=== PATIENT | male | born 1960 | race Caucasian/White ===

== ENCOUNTER 2019-05-09 18:10 | Inpatient (IN) ==
--- NOTE | 2019-05-09 18:41 | Emergency Department Note ---
Disposition Clinical Impression: Acute hyponatremia, Dehydration, Hypokalemia Disposition: Admitted As Inpatient Condition: Good Referrals: NONE,PCP [Primary Care Provider] - Forms: ED Satisfaction Letter Time of Disposition: 22:06 General Adult HPI - General Chief complaint: ED Extremity Problem,Nontraumatic Stated complaint: right hip pain Time Seen by Provider: 05/09/19 18:30 Source: patient, EMS Mode of arrival: EMS Limitations: no limitations Nursing Notes Reviewed: Yes Vital Signs Reviewed: Yes - History of Present Illness HPI Narrative: Patient presents to the emergency department very hard to understand because he is mumbling and not really staying on subject. He complains of pain to his right hip. I saw this a few days ago. He says is worse. He says he fell again at home after I had seen him. Complains of weakness. He does not know with Toradol his hip. Also turns out is not taking any of his medications. He is not doing any of his follow-up appointments. No one at home takes care of him. He lives with a friend of the son but does not get any care. Pt Subjective Complaint: Weakness and hip pain Pain Scale: 10 - Related Data Previous Rx's Medication Instructions Recorded Allopurinol [Zyloprim 100 MG] 100 mg PO DAILY #30 tablet 01/04/17 Aspirin 81 mg PO DAILY #30 tab.chew 01/04/17 Atorvastatin [Lipitor] 40 mg PO HS #30 tablet 01/04/17 Lisinopril [Zestril] 10 mg PO DAILY #30 tablet 01/04/17 Metoprolol XL (24 HR) Succ [Toprol 25 mg PO DAILY #30 tab.er.24h 01/04/17 Xl] metFORMIN [Glucophage] 500 mg PO BIDWM #60 tablet 01/04/17 Ketorolac [Toradol] 10 mg PO Q6HR #14 tablet 05/04/19 Allergies Allergy/AdvReac Type Severity Reaction Status Date / Time fluoxetine [From Prozac] AdvReac Nausea Verified 05/09/19 18:20 hydrocodone [From Vicodin] AdvReac Nausea Verified 05/09/19 18:20 All systems ED: reviewed and negative except as stated. Constitutional: Denies: fever ENT ED: Denies: ear pain, throat pain Cardiovascular: Denies: chest pain Respiratory: Denies: cough Gastrointestinal: Denies: abdominal pain Musculoskeletal: Reports: neck pain, arthralgia (Right hip). Denies: back pain Neurological: Reports: headache, weakness (Generalized weakness) Past Medical History - Past Medical History Attestation: Yes The following information was validated with the patient. Source: patient, old records reviewed, nursing notes reviewed Medical history: Reports: arthritis, coronary artery disease, diabetes, GERD, hyperlipidemia, hypertension, other Surgical history: Reports: angioplasty/stent (mid LAD CHELI x1 on 09/30/16), orthopedic, other (Right hip replacement, left humerus ORIF.) Psychiatric history: Reports: anxiety, depression, panic disorder - Social History Smoking Status: Current some day smoker Smokeless Tobacco Status: No Alcohol use: Reports: rarely Drug use: Reports: none Physical Exam - General Limitations: no limitations General appearance: alert, in no apparent distress, other (Slow to answer questions and speaks with mumbled speech so indistinct that you cannot tell if he is given you a correct answer or not) - Head Head exam: atraumatic, normocephalic, normal inspection - Eye Eye exam: Present: normal appearance, PERRL, EOMI. Absent: scleral icterus, conjunctival injection - ENT ENT exam: normal exam, normal oropharynx, mucous membranes moist, normal external ear exam - Neck Neck exam: Present: normal inspection, full ROM, trachea midline - Chest Chest inspection: Present: normal inspection, symmetric chest wall rise. Absent: tenderness - Respiratory Respiratory exam: Present: normal lung sounds bilaterally. Absent: respiratory distress, wheezes - Cardiovascular Cardiovascular exam: Present: regular rate, normal rhythm, normal heart sounds - Abdominal Exam Abdominal exam: Present: soft, Non-Tender, normal bowel sounds - Extremities Exam Extremities exam: Present: normal inspection, other (Pain with range of motion of hips) - Neurological Exam Neurological exam: Present: alert. Absent: motor sensory deficit - Skin Skin exam: Present: warm, dry. Absent: rash Course Course Narrative: Patient comes in with complaint of hip pain. This is a frequent complaint. Talking with the patient has fallen every other day at his home. Not taking his medicines. Poor hygiene. Clearly not taking care of or being cared for at home. It seems to me home was an unsafe environment. He needs a workup to find out why he is weak and unable to function and why he keeps falling. His speech is mumbling and unintelligible I cannot tell if he is coherent or not although he does follow my commands appropriately. I am going to do a workup. - Reevaluation(s) Reevaluation #1: Imaging studies were fine. Laboratory data is abnormal though. He has significantly low sodium level. BUN is very elevated compared to baseline. Clinically he looks dry. He is also hypokalemic. He needs to be admitted to the hospital. I given 1 L as a bolus and the second liter at 500 an hour. I have already spoken with the hospitalist, Dr. Sharma, who accepted the patient for admission. We had to hold the patient in the ER until they get another tech over there can watch the monitors Time: 22:07 - Consultations Consultation #1: Dr. Sharma, hospitalist - I discussed the case with the hospitalist. He accepted the patient for admission. Time: 21:00 Vital Signs Temperature 97.8 F 05/09/19 18:11 Pulse Rate 79 05/09/19 18:11 Respiratory Rate 15 05/09/19 18:11 Blood Pressure 136/65 05/09/19 18:11 O2 Sat by Pulse Oximetry 92 05/09/19 18:11 Temperature 97.8 F 05/09/19 18:11 Pulse Rate 103 05/09/19 22:06 Respiratory Rate 25 05/09/19 22:06 Blood Pressure 114/53 05/09/19 22:06 O2 Sat by Pulse Oximetry 95 05/09/19 22:06 Oxygen Delivery Oxygen Delivery Room Air Medical Decision Making - Medical Records Medical records reviewed: Yes I reviewed the patient's medical records. - Lab Data Lab results reviewed: Yes I reviewed the patient's lab results. Result diagrams: 05/09/19 18:57 05/09/19 18:57 Lab Results 05/09/19 05/09/19 05/09/19 Range/Units 18:57 18:57 18:57 WBC 14.0 H (4.3-11.1) K/mcL RBC 3.69 L (4.19-5.50) M/mcL Hgb 11.3 L (12.9-16.9) g/dL Hct 31.2 L (37.5-50.1) % MCV 84.6 (83.0-100.0) fL MCH 30.6 (28.0-33.3) pg MCHC 36.2 H (31.6-35.5) g/dL RDW 15.1 H (11.5-14.5) % Plt Count 109 L (140-400) K/mcL MPV 13.5 H (9.4-12.4) fL Immature Gran % 1.2 (0-4) % Seg Neutrophils % 89.4 % Lymphocytes % 5.3 % Monocytes % 1.6 % Eosinophils % 2.2 % Basophils % 0.3 % Neutrophils # 12.5 H (1.6-8.9) K/mcL Lymphocytes # 0.7 (0.6-4.6) K/mcL Monocytes # 0.2 (0.0-1.3) K/mcL Eosinophils # 0.3 (0.0-0.6) K/mcL Basophils # 0.0 (0.0-0.2) K/mcL Platelet Estimate Normal (Normal) PT (9.4-12.1) Seconds INR APTT 33.0 (26.0-36.0) Seconds Sample Site ABG pH (7.32-7.45) pH Units ABG pCO2 (35-45) mmHg ABG pO2 (85-104) mmHg ABG HCO3 (21-27) mEq/L ABG Total CO2 (20-26) mEq/L ABG O2 Saturation (95-98) % ABG Base Excess (-2 to 3) mEq/L Fausto Test O2 Delivery Device Sodium 115 L* (136-145) mEq/L Potassium 2.6 L (3.5-5.1) mEq/L Chloride 83 L (98-107) mEq/L Carbon Dioxide 23 (23-29) mEq/L BUN 73 H (6-20) mg/dL Creatinine 1.21 (0.70-1.30) mg/dL Est GFR ( Amer) > 60 (> 60) Est GFR (Non-Af Amer) > 60 (> 60) BUN/Creatinine Ratio 60 H (6-26) Glucose 133 H (70-105) mg/dL Calculated Osmolality 263 L (280-300) Lactic Acid (0.5-2.2) mmol/L Calcium 7.8 L (8.6-10.3) mg/dL Total Bilirubin (0.3-1.0) mg/dL Direct Bilirubin (0.0-0.2) mg/dL Indirect Bilirubin (0.0-1.2) mg/dL AST (13-39) Units/L ALT (7-52) Units/L Alkaline Phosphatase (34-104) Units/L Ammonia (16-53) mcmol/L Troponin I (< 0.04) ng/mL B-Natriuretic Peptide (Less than 100) pg/mL Serum Total Protein (6.4-8.9) g/dL Albumin (3.5-5.7) g/dL Globulin (2.4-3.5) g/dL Albumin/Globulin Ratio (1.1-2.2) Urine Color (Yellow) Urine Clarity (Clear) Urine pH (5.0-8.0) pH Units Ur Specific Foley (1.010-1.025) Urine Protein (Neg-Trace) mg/dL Urine Glucose (UA) (Normal) mg/dL Urine Ketones (Negative) mg/dL Urine Blood (Negative) Urine Nitrite (Negative) Urine Bilirubin (Negative) Urine Urobilinogen (Normal) mg/dL Ur Leukocyte Esterase (Negative) Urine Microscopic RBC (0-3) per hpf Urine Microscopic WBC (0-3) per hpf Ur Squamous Epith Cells (None-Few) per lpf Ur Transition Epith Cell (None-Few) per hpf Urine Bacteria (None-Few) per hpf Ur Culture Indicated? (NO) Urine Opiates Screen (Wjvacc=649) ng/mL Ur Buprenorphine Scrn (Cutoff=5) ng/mL Ur Oxycodone Screen (Cutoff= 100) ng/mL Ur Barbiturates Screen (Wnwmzp=719) ng/mL Ur Phencyclidine Scrn (Cutoff=25) ng/mL Ur Amphetamines Screen (Dkwopr=2923) ng/mL U Benzodiazepines Scrn (Lrsudl=701) ng/mL Urine Cocaine Screen (Cutoff= 300) ng/mL U Marijuana (THC) Screen (Cutoff = 50) ng/mL Ur Drug Screen Interp Ethyl Alcohol (Less than 10) mg/dL Person Notif of Crit 05/09/19 05/09/19 05/09/19 Range/Units 18:57 18:57 18:57 WBC (4.3-11.1) K/mcL RBC (4.19-5.50) M/mcL Hgb (12.9-16.9) g/dL Hct (37.5-50.1) % MCV (83.0-100.0) fL MCH (28.0-33.3) pg MCHC (31.6-35.5) g/dL RDW (11.5-14.5) % Plt Count (140-400) K/mcL MPV (9.4-12.4) fL Immature Gran % (0-4) % Seg Neutrophils % % Lymphocytes % % Monocytes % % Eosinophils % % Basophils % % Neutrophils # (1.6-8.9) K/mcL Lymphocytes # (0.6-4.6) K/mcL Monocytes # (0.0-1.3) K/mcL Eosinophils # (0.0-0.6) K/mcL Basophils # (0.0-0.2) K/mcL Platelet Estimate (Normal) PT 19.5 H (9.4-12.1) Seconds INR 1.7 APTT (26.0-36.0) Seconds Sample Site ABG pH (7.32-7.45) pH Units ABG pCO2 (35-45) mmHg ABG pO2 (85-104) mmHg ABG HCO3 (21-27) mEq/L ABG Total CO2 (20-26) mEq/L ABG O2 Saturation (95-98) % ABG Base Excess (-2 to 3) mEq/L Fausto Test O2 Delivery Device Sodium (136-145) mEq/L Potassium (3.5-5.1) mEq/L Chloride (98-107) mEq/L Carbon Dioxide (23-29) mEq/L BUN (6-20) mg/dL Creatinine (0.70-1.30) mg/dL Est GFR ( Amer) (> 60) Est GFR (Non-Af Amer) (> 60) BUN/Creatinine Ratio (6-26) Glucose (70-105) mg/dL Calculated Osmolality (280-300) Lactic Acid (0.5-2.2) mmol/L Calcium (8.6-10.3) mg/dL Total Bilirubin 3.9 H (0.3-1.0) mg/dL Direct Bilirubin 2.9 H (0.0-0.2) mg/dL Indirect Bilirubin 1.0 (0.0-1.2) mg/dL AST 93 H (13-39) Units/L ALT 57 H (7-52) Units/L Alkaline Phosphatase 153 H (34-104) Units/L Ammonia (16-53) mcmol/L Troponin I < 0.03 (< 0.04) ng/mL B-Natriuretic Peptide 78 (Less than 100) pg/mL Serum Total Protein 7.3 (6.4-8.9) g/dL Albumin 2.3 L (3.5-5.7) g/dL Globulin 5.0 H (2.4-3.5) g/dL Albumin/Globulin Ratio 0.5 L (1.1-2.2) Urine Color (Yellow) Urine Clarity (Clear) Urine pH (5.0-8.0) pH Units Ur Specific Foley (1.010-1.025) Urine Protein (Neg-Trace) mg/dL Urine Glucose (UA) (Normal) mg/dL Urine Ketones (Negative) mg/dL Urine Blood (Negative) Urine Nitrite (Negative) Urine Bilirubin (Negative) Urine Urobilinogen (Normal) mg/dL Ur Leukocyte Esterase (Negative) Urine Microscopic RBC (0-3) per hpf Urine Microscopic WBC (0-3) per hpf Ur Squamous Epith Cells (None-Few) per lpf Ur Transition Epith Cell (None-Few) per hpf Urine Bacteria (None-Few) per hpf Ur Culture Indicated? (NO) Urine Opiates Screen (Wftmfc=942) ng/mL Ur Buprenorphine Scrn (Cutoff=5) ng/mL Ur Oxycodone Screen (Cutoff= 100) ng/mL Ur Barbiturates Screen (Capobl=117) ng/mL Ur Phencyclidine Scrn (Cutoff=25) ng/mL Ur Amphetamines Screen (Apxfzz=2018) ng/mL U Benzodiazepines Scrn (Nnmdjg=097) ng/mL Urine Cocaine Screen (Cutoff= 300) ng/mL U Marijuana (THC) Screen (Cutoff = 50) ng/mL Ur Drug Screen Interp Ethyl Alcohol < 10 (Less than 10) mg/dL Person Notif of Crit 05/09/19 05/09/19 05/09/19 Range/Units 18:57 18:57 19:24 WBC (4.3-11.1) K/mcL RBC (4.19-5.50) M/mcL Hgb (12.9-16.9) g/dL Hct (37.5-50.1) % MCV (83.0-100.0) fL MCH (28.0-33.3) pg MCHC (31.6-35.5) g/dL RDW (11.5-14.5) % Plt Count (140-400) K/mcL MPV (9.4-12.4) fL Immature Gran % (0-4) % Seg Neutrophils % % Lymphocytes % % Monocytes % % Eosinophils % % Basophils % % Neutrophils # (1.6-8.9) K/mcL Lymphocytes # (0.6-4.6) K/mcL Monocytes # (0.0-1.3) K/mcL Eosinophils # (0.0-0.6) K/mcL Basophils # (0.0-0.2) K/mcL Platelet Estimate (Normal) PT (9.4-12.1) Seconds INR APTT (26.0-36.0) Seconds Sample Site R Radial ABG pH 7.47 H (7.32-7.45) pH Units ABG pCO2 25 L (35-45) mmHg ABG pO2 40 L* (85-104) mmHg ABG HCO3 18 L (21-27) mEq/L ABG Total CO2 19 L (20-26) mEq/L ABG O2 Saturation 80 L (95-98) % ABG Base Excess -4 L (-2 to 3) mEq/L Fausto Test Positive O2 Delivery Device Room Air Sodium (136-145) mEq/L Potassium (3.5-5.1) mEq/L Chloride (98-107) mEq/L Carbon Dioxide (23-29) mEq/L BUN (6-20) mg/dL Creatinine (0.70-1.30) mg/dL Est GFR ( Amer) (> 60) Est GFR (Non-Af Amer) (> 60) BUN/Creatinine Ratio (6-26) Glucose (70-105) mg/dL Calculated Osmolality (280-300) Lactic Acid 2.8 H (0.5-2.2) mmol/L Calcium (8.6-10.3) mg/dL Total Bilirubin (0.3-1.0) mg/dL Direct Bilirubin (0.0-0.2) mg/dL Indirect Bilirubin (0.0-1.2) mg/dL AST (13-39) Units/L ALT (7-52) Units/L Alkaline Phosphatase (34-104) Units/L Ammonia 41 (16-53) mcmol/L Troponin I (< 0.04) ng/mL B-Natriuretic Peptide (Less than 100) pg/mL Serum Total Protein (6.4-8.9) g/dL Albumin (3.5-5.7) g/dL Globulin (2.4-3.5) g/dL Albumin/Globulin Ratio (1.1-2.2) Urine Color (Yellow) Urine Clarity (Clear) Urine pH (5.0-8.0) pH Units Ur Specific Foley (1.010-1.025) Urine Protein (Neg-Trace) mg/dL Urine Glucose (UA) (Normal) mg/dL Urine Ketones (Negative) mg/dL Urine Blood (Negative) Urine Nitrite (Negative) Urine Bilirubin (Negative) Urine Urobilinogen (Normal) mg/dL Ur Leukocyte Esterase (Negative) Urine Microscopic RBC (0-3) per hpf Urine Microscopic WBC (0-3) per hpf Ur Squamous Epith Cells (None-Few) per lpf Ur Transition Epith Cell (None-Few) per hpf Urine Bacteria (None-Few) per hpf Ur Culture Indicated? (NO) Urine Opiates Screen (Qkjtbg=790) ng/mL Ur Buprenorphine Scrn (Cutoff=5) ng/mL Ur Oxycodone Screen (Cutoff= 100) ng/mL Ur Barbiturates Screen (Rzwsld=860) ng/mL Ur Phencyclidine Scrn (Cutoff=25) ng/mL Ur Amphetamines Screen (Qfgbwm=6798) ng/mL U Benzodiazepines Scrn (Dthdsi=775) ng/mL Urine Cocaine Screen (Cutoff= 300) ng/mL U Marijuana (THC) Screen (Cutoff = 50) ng/mL Ur Drug Screen Interp Ethyl Alcohol (Less than 10) mg/dL Person Notif of Ko carmen rn 05/09/19 05/09/19 Range/Units 19:30 19:30 WBC (4.3-11.1) K/mcL RBC (4.19-5.50) M/mcL Hgb (12.9-16.9) g/dL Hct (37.5-50.1) % MCV (83.0-100.0) fL MCH (28.0-33.3) pg MCHC (31.6-35.5) g/dL RDW (11.5-14.5) % Plt Count (140-400) K/mcL MPV (9.4-12.4) fL Immature Gran % (0-4) % Seg Neutrophils % % Lymphocytes % % Monocytes % % Eosinophils % % Basophils % % Neutrophils # (1.6-8.9) K/mcL Lymphocytes # (0.6-4.6) K/mcL Monocytes # (0.0-1.3) K/mcL Eosinophils # (0.0-0.6) K/mcL Basophils # (0.0-0.2) K/mcL Platelet Estimate (Normal) PT (9.4-12.1) Seconds INR APTT (26.0-36.0) Seconds Sample Site ABG pH (7.32-7.45) pH Units ABG pCO2 (35-45) mmHg ABG pO2 (85-104) mmHg ABG HCO3 (21-27) mEq/L ABG Total CO2 (20-26) mEq/L ABG O2 Saturation (95-98) % ABG Base Excess (-2 to 3) mEq/L Fausto Test O2 Delivery Device Sodium (136-145) mEq/L Potassium (3.5-5.1) mEq/L Chloride (98-107) mEq/L Carbon Dioxide (23-29) mEq/L BUN (6-20) mg/dL Creatinine (0.70-1.30) mg/dL Est GFR ( Amer) (> 60) Est GFR (Non-Af Amer) (> 60) BUN/Creatinine Ratio (6-26) Glucose (70-105) mg/dL Calculated Osmolality (280-300) Lactic Acid (0.5-2.2) mmol/L Calcium (8.6-10.3) mg/dL Total Bilirubin (0.3-1.0) mg/dL Direct Bilirubin (0.0-0.2) mg/dL Indirect Bilirubin (0.0-1.2) mg/dL AST (13-39) Units/L ALT (7-52) Units/L Alkaline Phosphatase (34-104) Units/L Ammonia (16-53) mcmol/L Troponin I (< 0.04) ng/mL B-Natriuretic Peptide (Less than 100) pg/mL Serum Total Protein (6.4-8.9) g/dL Albumin (3.5-5.7) g/dL Globulin (2.4-3.5) g/dL Albumin/Globulin Ratio (1.1-2.2) Urine Color Yellow (Yellow) Urine Clarity Clear (Clear) Urine pH 6.0 (5.0-8.0) pH Units Ur Specific Foley 1.010 (1.010-1.025) Urine Protein 30 H (Neg-Trace) mg/dL Urine Glucose (UA) Normal (Normal) mg/dL Urine Ketones Negative (Negative) mg/dL Urine Blood Small H (Negative) Urine Nitrite Negative (Negative) Urine Bilirubin Small H (Negative) Urine Urobilinogen 2.0 H (Normal) mg/dL Ur Leukocyte Esterase Small H (Negative) Urine Microscopic RBC 5-15 H (0-3) per hpf Urine Microscopic WBC 50-100 H (0-3) per hpf Ur Squamous Epith Cells Few (None-Few) per lpf Ur Transition Epith Cell Few (None-Few) per hpf Urine Bacteria Moderate H (None-Few) per hpf Ur Culture Indicated? YES A (NO) Urine Opiates Screen Positive H (Fkwwuz=372) ng/mL Ur Buprenorphine Scrn Negative (Cutoff=5) ng/mL Ur Oxycodone Screen Negative (Cutoff= 100) ng/mL Ur Barbiturates Screen Negative (Ozggci=983) ng/mL Ur Phencyclidine Scrn Negative (Cutoff=25) ng/mL Ur Amphetamines Screen Negative (Sqnjlv=4013) ng/mL U Benzodiazepines Scrn Negative (Vtcxvb=089) ng/mL Urine Cocaine Screen Negative (Cutoff= 300) ng/mL U Marijuana (THC) Screen Negative (Cutoff = 50) ng/mL Ur Drug Screen Interp See Below Ethyl Alcohol (Less than 10) mg/dL Person Notif of Crit - Radiology Data Radiology results reviewed: Yes I reviewed the patient's radiology results. - EKG Data EKG #1 EKG attestation: Yes I reviewed and interpreted this EKG. EKG results narrative: Twelve-lead EKG performed at 6:52 PM. Ordered, reviewed and interpreted by ED physician showed sinus rhythm at a rate of 86. Normal axis. Good hour progression across precordium. No acute ischemic changes. He does have a nonspecific intraventricular conduction delay. Otherwise intervals are within normal limits.
[2019-05-09 19:08] LABS: Basophils % 0.3 %; Eosinophils # 0.3 K/mcL (0.0-0.6); Eosinophils % 2.2 %; Hematocrit 31.2 % (37.5-50.1); Hemoglobin 11.3 g/dL (12.9-16.9); Immature Granulocytes % 1.2 % (0-4); Lymphocytes # 0.7 K/mcL (0.6-4.6); Lymphocytes % 5.3 %; Mean Corpuscular HGB Conc 36.2 g/dL (31.6-35.5); Mean Corpuscular Hemoglobin 30.6 pg (28.0-33.3); Mean Corpuscular Volume 84.6 fL (83.0-100.0); Mean Platelet Volume 13.5 fL (9.4-12.4); Monocytes # 0.2 K/mcL (0.0-1.3); Monocytes % 1.6 %; Neutrophils # 12.5 K/mcL (1.6-8.9); Platelet Count 109 K/mcL (140-400); Red Blood Count 3.69 M/mcL (4.19-5.50); Red Cell Distribution Width 15.1 % (11.5-14.5); Segmented Neutrophils % 89.4 %
[2019-05-09] MEDS: 0.9 % Sodium Chloride 1,000 ML IVC ONE ×2 (19:19→20:59)
[2019-05-09 19:26] LABS: INR 1.7; Prothrombin Time 19.5 Seconds (9.4-12.1)
[2019-05-09 19:27] LABS: Alanine Aminotransferase 57 Units/L (7-52); Albumin 2.3 g/dL (3.5-5.7); Albumin/Globulin Ratio 0.5 (1.1-2.2); Alkaline Phosphatase 153 Units/L (34-104); Aspartate Amino Transferase 93 Units/L (13-39); Bilirubin,Direct 2.9 mg/dL (0.0-0.2); Bilirubin,Total 3.9 mg/dL (0.3-1.0); Ethanol < 10 mg/dL (Less than 10); Total Protein 7.3 g/dL (6.4-8.9)
[2019-05-09 19:28] LABS: Troponin I < 0.03 ng/mL (< 0.04)
[2019-05-09 19:29] LABS: BUN/Creatinine Ratio 60 (6-26); Blood Urea Nitrogen 73 mg/dL (6-20); Calcium 7.8 mg/dL (8.6-10.3); Carbon Dioxide 23 mEq/L (23-29); Chloride 83 mEq/L (98-107); Glucose 133 mg/dL (70-105); Osmolality,Calculated 263 (280-300); Potassium 2.6 mEq/L (3.5-5.1); Sodium 115 mEq/L (136-145); eGFR For African Americans > 60 (> 60); eGFR For Non-African Americans > 60 (> 60)
[2019-05-09 19:29] LABS: ABG Base Excess -4 mEq/L (-2 to 3); ABG HCO3 18 mEq/L (21-27); ABG Oxygen Saturation 80 % (95-98); ABG PCO2 25 mmHg (35-45); ABG PH 7.47 pH Units (7.32-7.45); ABG PO2 40 mmHg (85-104); ABG TCO2 19 mEq/L (20-26)
[2019-05-09] MEDS ORDERED: Isovue-370 500 ML BOTTLE IVP ONE (19:35)
[2019-05-09 19:39] LABS: Platelet Estimate Normal (Normal)
[2019-05-09 19:40] LABS: Bilirubin,Urine Small (Negative); Blood,Urine Small (Negative); Clarity,Urine Clear (Clear); Color,Urine Yellow (Yellow); Glucose,Urine (UA) Normal (Normal); Ketones,Urine Negative (Negative); Leukocyte Esterase,Urine Small (Negative); Nitrite,Urine Negative (Negative); Protein,Urine 30 mg/dL (Neg-Trace)
[2019-05-09 19:46] LABS: Bacteria,Urine Moderate per hpf (None-Few); Squamous Epithelial Cell,Urine Few per lpf (None-Few); Transitional Epi Cells,Urine Few per hpf (None-Few); WBC,Urine 50-100 per hpf (0-3)
[2019-05-09 20:01] LABS: Amphetamine Screen,Urine Negative ng/mL (Cutoff=1000); Barbiturate Screen,Urine Negative ng/mL (Cutoff=200); Benzodiazepines Screen,Urine Negative ng/mL (Cutoff=200); Cannabinoid Screen,Urine Negative ng/mL (Cutoff = 50); Cocaine Screen,Urine Negative ng/mL (Cutoff= 300); Opiate Screen,Urine Positive ng/mL (Cutoff=300); Phencyclidine Screen,Urine Negative ng/mL (Cutoff=25)
[2019-05-09] MEDS ORDERED: 0.9 % Sodium Chloride 1,000 ML ONE (20:54)
[2019-05-09] MEDS ORDERED: Potassium Effervescent 25 MEQ TABLET.EFF PO ONE (22:05)
[2019-05-10] MEDS ORDERED: 0.9 % Sodium Chloride 1,000 ML ONE (00:15)
[2019-05-10] MEDS ORDERED: Naloxone 0.4 MG/ML INJ IVP PRN (00:15)
[2019-05-10] MEDS ORDERED: Azithromycin 500 MG in 0.9 % Sodium Chloride 250 ML IVPB ONE (00:50)
[2019-05-10] MEDS: 0.9 % Sodium Chloride w KCl 20 MEQ/1,000 ML MLS IVC SCH ×3 (01:16→12:26)
[2019-05-10 05:31] LABS: Basophils % 0.3 %; Eosinophils # 0.1 K/mcL (0.0-0.6); Eosinophils % 0.9 %; Hematocrit 24.3 % (37.5-50.1); Lymphocytes # 0.9 K/mcL (0.6-4.6); Lymphocytes % 5.6 %; Mean Corpuscular Hemoglobin 31.1 pg (28.0-33.3); Mean Corpuscular Volume 84.1 fL (83.0-100.0); Mean Platelet Volume 13.6 fL (9.4-12.4); Monocytes # 0.4 K/mcL (0.0-1.3); Monocytes % 2.6 %; Neutrophils # 13.4 K/mcL (1.6-8.9); Red Blood Count 2.89 M/mcL (4.19-5.50); Segmented Neutrophils % 87.6 %; White Blood Count 15.3 K/mcL (4.3-11.1)
[2019-05-10 05:43] LABS: Basophils # 0.1 K/mcL (0.0-0.2); Platelet Count 84 K/mcL (140-400)
[2019-05-10 05:59] LABS: Alanine Aminotransferase 39 Units/L (7-52); Albumin 1.8 g/dL (3.5-5.7); Albumin/Globulin Ratio 0.5 (1.1-2.2); Alkaline Phosphatase 137 Units/L (34-104); Aspartate Amino Transferase 82 Units/L (13-39); BUN/Creatinine Ratio 55 (6-26); Bilirubin,Total 3.7 mg/dL (0.3-1.0); Blood Urea Nitrogen 71 mg/dL (6-20); Calcium 7.2 mg/dL (8.6-10.3); Carbon Dioxide 20 mEq/L (23-29); Chloride 92 mEq/L (98-107); Glucose 85 mg/dL (70-105); Magnesium 1.7 mg/dL (1.6-2.6); Osmolality,Calculated 272 (280-300); Potassium 3.1 mEq/L (3.5-5.1); Sodium 121 mEq/L (136-145); Total Protein 5.8 g/dL (6.4-8.9); eGFR For African Americans > 60 (> 60); eGFR For Non-African Americans 57 (> 60)
[2019-05-10 06:26] LABS: Platelet Estimate Decreased (Normal)
[2019-05-10 08:05] LABS: Acinetobacter baumannii by PCR Not Detected (Not Detect); Candida albicans by PCR Not Detected (Not Detect); Candida glabrata by PCR Not Detected (Not Detect); Candida krusei by PCR Not Detected (Not Detect); Candida parapsilosis by PCR Not Detected (Not Detect); Candida tropicalis by PCR Not Detected (Not Detect); Enterobacter cloacae Cmplx PCR Not Detected (Not Detect); Enterobacteriaceae by PCR Not Detected (Not Detect); Enterococcus by PCR Not Detected (Not Detect); Escherichia coli by PCR Not Detected (Not Detect); Klebsiella oxytoca by PCR Not Detected (Not Detect); Klebsiella pneumoniae by PCR Not Detected (Not Detect); Proteus by PCR Not Detected (Not Detect); Pseudomonas aeruginosa by PCR Not Detected (Not Detect); Serratia marcescens by PCR Not Detected (Not Detect); Staphylococcus aureus by PCR DETECTED (Not Detect); Streptococcus agalactiae(B)PCR Not Detected (Not Detect); Streptococcus by PCR Not Detected (Not Detect); Streptococcus pneumoniae PCR Not Detected (Not Detect); Streptococcus pyogenes (A) PCR Not Detected (Not Detect); mecA Methicillin-Resist Gene DETECTED (Not Detect)
[2019-05-10] MEDS: Aspirin 81 MG TAB.CHEW PO SCH (08:26)
[2019-05-10] MEDS: *HR* Metformin 500 MG TABLET PO SCH ×2 (08:26→16:56)
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
[2019-05-10] MEDS: Lactulose Oral Soln 20 GM/30 ML UDC PO SCH ×2 (12:24→19:33)
[2019-05-10] MEDS: Nicotine 21 MG PATCH.TD24 TD SCH (12:25)
--- NOTE | 2019-05-10 14:41 | Electrocardiograph Report ---
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
[2019-05-10] MEDS: Lactobacillus 1 EACH CAP.SPRINK PO SCH (19:33)
[2019-05-11] MEDS: 0.9 % Sodium Chloride w KCl 20 MEQ/1,000 ML MLS IVC SCH ×3 (01:42→15:39)
[2019-05-11] MEDS: Acetaminophen 325 MG TABLET PO PRN ×4 (02:17→21:40)
[2019-05-11 05:03] LABS: Basophils % 0.2 %; Eosinophils # 0.2 K/mcL (0.0-0.6); Eosinophils % 1.5 %; Hematocrit 24.9 % (37.5-50.1); Immature Granulocytes % 1.8 % (0-4); Lymphocytes # 0.8 K/mcL (0.6-4.6); Lymphocytes % 6.1 %; Mean Corpuscular HGB Conc 36.1 g/dL (31.6-35.5); Mean Corpuscular Hemoglobin 30.7 pg (28.0-33.3); Mean Platelet Volume 12.9 fL (9.4-12.4); Monocytes # 0.3 K/mcL (0.0-1.3); Monocytes % 2.3 %; Neutrophils # 11.5 K/mcL (1.6-8.9); Platelet Count 114 K/mcL (140-400); Red Blood Count 2.93 M/mcL (4.19-5.50); Red Cell Distribution Width 15.3 % (11.5-14.5); Segmented Neutrophils % 88.1 %; White Blood Count 13.1 K/mcL (4.3-11.1)
[2019-05-11 05:09] LABS: Alanine Aminotransferase 33 Units/L (7-52); Albumin 1.8 g/dL (3.5-5.7); Albumin/Globulin Ratio 0.4 (1.1-2.2); Alkaline Phosphatase 141 Units/L (34-104); Aspartate Amino Transferase 64 Units/L (13-39); BUN/Creatinine Ratio 62 (6-26); Bilirubin,Total 4.3 mg/dL (0.3-1.0); Blood Urea Nitrogen 61 mg/dL (6-20); Calcium 7.4 mg/dL (8.6-10.3); Carbon Dioxide 20 mEq/L (23-29); Chloride 97 mEq/L (98-107); Globulin 4.3 g/dL (2.4-3.5); Glucose 169 mg/dL (70-105); Osmolality,Calculated 275 (280-300); Potassium 3.2 mEq/L (3.5-5.1); Sodium 122 mEq/L (136-145); Total Protein 6.1 g/dL (6.4-8.9); Uric Acid 9.5 mg/dL (2.3-7.6); eGFR For African Americans > 60 (> 60); eGFR For Non-African Americans > 60 (> 60)
[2019-05-11] MEDS: *HR* Enoxaparin 40 MG/0.4 ML SYRINGE SQ SCH (05:16)
[2019-05-11 05:26] LABS: Thyroid Stimulating Hormone 1.947 mcIU/mL (0.340-5.600)
[2019-05-11] MEDS: Lactulose Oral Soln 20 GM/30 ML UDC PO SCH ×2 (07:48→20:36)
[2019-05-11] MEDS: Aspirin 81 MG TAB.CHEW PO SCH (07:48)
[2019-05-11] MEDS: Lactobacillus 1 EACH CAP.SPRINK PO SCH ×2 (07:48→20:36)
[2019-05-11] MEDS: Nicotine 21 MG PATCH.TD24 TD SCH (07:49)
[2019-05-11 08:57] LABS: % Iron Saturation 23 % (20-55); Iron 34 mcg/dL (65-175); Transferrin 106 mg/dL (203-362)
[2019-05-11 09:16] LABS: Ferritin 724 ng/mL (20-250)
[2019-05-11 09:20] LABS: Vitamin B12 1341 pg/mL (250-1100)
[2019-05-11 09:21] LABS: Folate 2.8 ng/mL (3.0-16.0)
[2019-05-11 09:32] LABS: Estimated Average Glucose 137 mg/dl
--- NOTE | 2019-05-11 09:48 | Internal Med Progress Note ---
Date of Encounter: 05/11/19 Time of Encounter: 09:35 - Assessment and plan (1) MRSA bacteremia Current Visit: Yes Status: Acute Assessment and plan: May 11. Present on PCR, blood cultures, and urine culture. Etiology workup in progress. Continue IV vancomycin with lactobacillus. (2) EMILY (acute kidney injury) Current Visit: Yes Status: Acute Assessment and plan: May 11. BUN and creatinine improved at 61 and 0.98 respectively with estimated GFR> 60. Continue IV fluids (3) Hyponatremia Current Visit: Yes Status: Acute Assessment and plan: May 11. Sodium improved to 122. Continue IV fluids and monitoring. (4) Multiple falls Current Visit: Yes Status: Acute Assessment and plan: May 11. Continue PT and OT intervention. (5) Cirrhosis Current Visit: Yes Status: Acute Assessment and plan: May 11. LFTs improved. Hepatitis profile pending. Qualifiers: Hepatic cirrhosis type: alcoholic cirrhosis Ascites presence: without ascites Qualified Code(s): K70.30 - Alcoholic cirrhosis of liver without ascites (6) Hypokalemia Current Visit: Yes Status: Acute Assessment and plan: May 11. Potassium level slightly higher at 3.2. Continue oral and IV potassium supplementation. (7) Diabetes mellitus Current Visit: No Status: Acute Assessment and plan: May 11. Hemoglobin A1c pending. Accu-Cheks acceptable. Qualifiers: Diabetes mellitus type: type 2 Diabetes mellitus tank terminal gauger insulin use: without tank terminal gauger use Diabetes mellitus complication status: without complication Qualified Code(s): E11.9 - Type 2 diabetes mellitus without complications (8) HTN (hypertension) Current Visit: No Status: Acute Assessment and plan: May 11. Blood pressure stable off medication. Qualifiers: Qualified Code(s): I10 - Essential (primary) hypertension (9) CAD (coronary artery disease) Current Visit: No Status: Chronic Assessment and plan: May 11. Continue aspirin Qualifiers: Coronary Disease-Associated Artery/Lesion type: [place] artery [place] vs. transplanted heart: [place] heart Associated angina: angina presence unspeci fied Qualified Code(s): I25.10 - Atherosclerotic heart disease of [place] coronary artery without angina pectoris (10) AVN (avascular necrosis of bone) Current Visit: Yes Status: Acute (11) AVN of femur Current Visit: Yes Status: Acute Assessment and plan: May 11. MRI showed remote mild AVN of left femoral head. No acute abnormality was seen. 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 Phosphorus level low at 2.4. Start supplemental Neutra-Phos. (13) Low folic acid Current Visit: Yes Status: Acute Assessment and plan: May 11. Folate level low at 2.8. Start folic acid replacement. (14) Gout Current Visit: Yes Status: Chronic Assessment and plan: May 11. Uric acid level elevated at 9.5. Start allopurinol. Qualifiers: Gout site: unspecified site Gout etiology: unspecified cause Chronicity: chronic Presence of tophus: without tophus Qualified Code(s): M1A.9XX0 - Chronic gout, unspecified, without tophus (tophi) - Subjective Interval history: May 11. He has no new complaints. - Constitutional Vitals: Temp Pulse Resp BP Pulse Ox 97.6 F 76 20 112/58 100 05/11/19 06:29 05/11/19 06:29 05/11/19 06:29 05/11/19 06:29 05/11/19 06:29 Exam: He has lying in bed and appears in no acute distress. His affect is flat. He denies significant pain. I reviewed his medications and lab results. Internal Medicine: Result - Labs CBC & Chem 7: 05/11/19 04:08 05/11/19 04:08 Labs: Short CBC 05/11/19 Range/Units 04:08 WBC 13.1 H (4.3-11.1) K/mcL Hgb 9.0 L (12.9-16.9) g/dL Hct 24.9 L (37.5-50.1) % Plt Count 114 L (140-400) K/mcL Neutrophils # 11.5 H (1.6-8.9) K/mcL BMP 05/11/19 04:08 Sodium 122 L Potassium 3.2 L Chloride 97 L Carbon Dioxide 20 L BUN 61 H Creatinine 0.98 Glucose 169 H Calcium 7.4 L Liver Function 05/11/19 Range/Units 04:08 Total Bilirubin 4.3 H (0.3-1.0) mg/dL AST 64 H (13-39) Units/L ALT 33 (7-52) Units/L Alkaline Phosphatase 141 H (34-104) Units/L Albumin 1.8 L (3.5-5.7) g/dL - ABG Interpretation ABG results: ABG ABG pH 7.47 pH Units (7.32-7.45) H 05/09/19 19:24 ABG pCO2 25 mmHg (35-45) L 05/09/19 19:24 ABG pO2 40 mmHg (85-104) L* 05/09/19 19:24 ABG O2 Saturation 80 % (95-98) L 05/09/19 19:24 PT/INR, D-dimer PT 19.5 Seconds (9.4-12.1) H 05/09/19 18:57 - Impressions Impressions Pelvis MRI 05/10/19 10:15 IMPRESSION: Right total hip arthroplasty without evidence of acute hardware complication. Moderate to severe right hip iliopsoas bursitis likely accounting for the abnormal appearance of the iliopsoas muscle on prior CT imaging. Intramuscular edema of the right vastus lateralis muscle suggesting a chronic grade 1 strain. Findings suggesting remote mild AVN of the left femoral head. No evidence of marrow edema, joint effusion or articular surface collapse to suggest acute abnormality of the left hip. D/ / 05/10/2019 15:51:13 Gadiel Ann MD / lgray Interpreting Provider: Gadiel Ann MD Consult Discharge Plan - Plan Referrals: NONE,PCP [Primary Care Provider] - 1 week
[2019-05-11 11:24] LABS: Hepatitis B Surface Antigen Nonreactive (Nonreactive)
[2019-05-11] MEDS: Folic Acid 1 MG TABLET PO SCH (11:25)
[2019-05-11 11:53] LABS: Hepatitis B Core IgM Nonreactive (Nonreactive)
[2019-05-11 11:54] LABS: Hepatitis A Antibody IgM Nonreactive (Nonreactive)
[2019-05-11 12:41] LABS: Vitamin D 25 Hydroxy 15 ng/mL (30-80)
[2019-05-11 14:06] LABS: Hepatitis C Virus Antibody Reactive (Nonreactive)
[2019-05-12] MEDS: *HR* OxyCODONE/APAP 5/325 TABLET PO PRN ×2 (01:42→11:31)
[2019-05-12 02:10] LABS: Basophils % 0.4 %; Eosinophils % 1.7 %; Hematocrit 29.9 % (37.5-50.1); Hemoglobin 10.7 g/dL (12.9-16.9); Immature Granulocytes % 1.3 % (0-4); Lymphocytes # 0.3 K/mcL (0.6-4.6); Lymphocytes % 13.7 %; Mean Corpuscular HGB Conc 35.8 g/dL (31.6-35.5); Mean Corpuscular Hemoglobin 30.7 pg (28.0-33.3); Mean Corpuscular Volume 85.7 fL (83.0-100.0); Mean Platelet Volume 12.8 fL (9.4-12.4); Monocytes # 0.1 K/mcL (0.0-1.3); Monocytes % 2.6 %; Neutrophils # 1.9 K/mcL (1.6-8.9); Platelet Count 136 K/mcL (140-400); Red Blood Count 3.49 M/mcL (4.19-5.50); Red Cell Distribution Width 15.6 % (11.5-14.5); Segmented Neutrophils % 80.3 %; White Blood Count 2.3 K/mcL (4.3-11.1)
[2019-05-12] MEDS ORDERED: *HR* Metoprolol 5 MG/5 ML VIAL IVP ONE ×2 (02:16→02:48)
[2019-05-12] MEDS: *HR* Metoprolol 5 MG/5 ML VIAL IVP ONE ×2 (02:17→02:24)
[2019-05-12] MEDS ORDERED: Ondansetron 4 MG/2 ML VIAL IVP ONE (02:23)
[2019-05-12] MEDS ORDERED: *HR* HYDROmorphone (PF) 1 MG/ML SYRINGE IVP ONE (02:23)
--- NOTE | 2019-05-12 02:23 | Event Note ---
Date of Encounter: 05/12/19 Time of Encounter: 02:00 Called for a rapid response to the floor due to accelerated Heart rate 143 ekg done and lopressor ordered for HR and elevated bp.. Asked lab to draw am labs. Contacted Dr Sharma and advised and wants rate treated . Discussed possible sepsis and he felt that this is related to the heart rate and due to labs improving and still hyponatremic and multiple other electrolyte abnormalities. Etiology for sepsis / + blood cultures is unclear ECHO of the heart ordered and pending and possibility includes hip and urine on medication for the MRSA are being given. Ordered lactic level also. Lopressor given for heart rate which will also help with bp. He is alert pleasantly confused elderly male but is able to carry on conversation with me he is pale in appearance he has strong pulses is brisk capillary refill he has no cyanosis noted his skin is pale the touch but no mottling is noted pupils round nares are patent tympanic membranes are intact throat is soft supple trachea is midline chest is clear the heart is tachycardic abdomen is soft supple positive bowel sounds extremities show forage motion postbulbar 5 strength he does follow commands his mentation shows that at times he is confused and at one point he was even arguing with himself in the window of the room EKG shows sinus tach AL 160 QRS QT AXIS Repeated dose of Lopressor 5mg after rate decreased to 120. pt feels a little better. Pt WBC dropped off significantly from 13.1 down to 2.3 lactic pending will start fluids for risk of sepsis also this was started at 30 ML's per kilo In addition to this we were notified that the lactic acid was 5.8 which confirms notes that he is septic my concern is that his white count is drop significantly but that we were notified from the lab that his sodium was 200 his potassium was 10.1 and that his calcium was 2.1 in reviewing of these numbers I was concerned that this is actually incompatible with life and I have asked laboratory draw and confirms when the labs were rewritten his sodium was improved his potassium was actually normal and his calcium was elevated back into the low normal range. As result does show that he does have a significant infection and the patient will be hydrated heart rate is down to the 90s blood pressure did drop slightly to 88/60 after the second dose of Lopressor but came back up immediately with the first 500 mL bolus which shows that it is fluid responsive as result though the heart rate is not increased since this time the patient will be continued to be managed on the floor Dr. Sharma was advised of the abnormal labs and he agreed having been redrawn. Continue to monitor patient was to have repeat lactic acid and 4 hours Sepsis Event Note - Evaluation Sepsis Screen: No Definite Risk Current Stage of Suspected Sepsis: sepsis Possible Source of Sepsis: unknown - Focused Exam Date of Encounter: 05/12/19 Time of Encounter: 03:02 Vital Signs: Vital Signs Temp Pulse Resp BP Pulse Ox 05/12/19 01:26 97.9 F 135 36 101/57 90 05/11/19 23:52 98 F 83 20 167/78 99 05/11/19 20:55 98 05/11/19 18:29 97.6 F 87 17 166/69 98 05/11/19 15:10 96.1 F L 69 19 114/69 100 Respiratory Exam: Present: CTA bilaterally Cardiovascular Exam: Present: tachycardia Capillary Refill: < 2 seconds Peripheral Pulse Strength: 2+ slightly diminished Peripheral Pulse Location: Posterior Tibial Skin Exam: pale - Bedside Monitoring Bedside Ultrasound Performed: No Passive Leg raise/fluid bolus: fluid responsive Sepsis Reassessment Note - Evaluation Sepsis Screen: Severe Sepsis Risk Current Stage of Sepsis: sepsis Possible Source of Sepsis: unknown - Focused Exam Date of Encounter: 05/12/19 Time of Encounter: 04:30 Vital Signs: Vital Signs Temp Pulse Resp BP Pulse Ox 05/12/19 06:30 97.7 F 97 28 100/65 96 05/12/19 06:07 97.6 F 95 28 91/58 05/12/19 05:25 98 28 99/62 99 05/12/19 04:57 98.4 F 97 24 88/54 99 05/12/19 04:04 94 32 97/60 100 05/12/19 03:46 97.8 F 98 30 88/50 100 05/12/19 03:32 102 32 104/50 99 05/12/19 03:11 100 32 100/55 98 05/12/19 03:00 145 36 178/88 99 05/12/19 02:42 122 34 140/62 05/12/19 02:26 125 36 170/82 99 05/12/19 02:21 118 05/12/19 02:01 149 36 170/83 95 05/12/19 01:58 148 36 148/36 99 05/12/19 01:26 97.9 F 135 36 101/57 90 05/11/19 23:52 98 F 83 20 167/78 99 05/11/19 20:55 98 Respiratory Exam: Present: CTA bilaterally Cardiovascular Exam: Present: RRR Capillary Refill: < 2 seconds Peripheral Pulse Strength: 3+ normal Peripheral Pulse Location: Posterior Tibial Skin Exam: pale - Reassessment Comments Comments: The confusion that was noted on the patient initially has seemed to have resolved at this time the patient is doing better he is not shaking is much and he has had some relief with the Dilaudid that was given 10 for pain and the heart rate is responded well blood pressure has come down patient was given the fluids based on 30 ML's per kilo I did not add any additional antibiotics at this time for Dr. Sharma to manage will repeat lactic in for
[2019-05-12] MEDS ORDERED: 0.9 % Sodium Chloride 1,000 ML ONE (02:56)
[2019-05-12] MEDS: 0.9 % Sodium Chloride w KCl 20 MEQ/1,000 ML MLS IVC SCH (02:58)
[2019-05-12 03:00] LABS: Platelet Estimate Slight Decrease (Normal)
[2019-05-12] MEDS: 0.9 % Sodium Chloride 1,000 ML IVC SCH ×2 (03:00→04:33)
[2019-05-12 04:15] LABS: Acinetobacter baumannii by PCR Not Detected (Not Detect); Candida albicans by PCR Not Detected (Not Detect); Candida glabrata by PCR Not Detected (Not Detect); Candida krusei by PCR Not Detected (Not Detect); Candida parapsilosis by PCR Not Detected (Not Detect); Candida tropicalis by PCR Not Detected (Not Detect); Enterobacter cloacae Cmplx PCR Not Detected (Not Detect); Enterobacteriaceae by PCR Not Detected (Not Detect); Enterococcus by PCR Not Detected (Not Detect); Escherichia coli by PCR Not Detected (Not Detect); Klebsiella oxytoca by PCR Not Detected (Not Detect); Klebsiella pneumoniae by PCR Not Detected (Not Detect); Proteus by PCR Not Detected (Not Detect); Pseudomonas aeruginosa by PCR Not Detected (Not Detect); Serratia marcescens by PCR Not Detected (Not Detect); Staphylococcus aureus by PCR DETECTED (Not Detect); Streptococcus agalactiae(B)PCR Not Detected (Not Detect); Streptococcus by PCR Not Detected (Not Detect); Streptococcus pneumoniae PCR Not Detected (Not Detect); Streptococcus pyogenes (A) PCR Not Detected (Not Detect); blaKPC Carbapenem-Resist Gene Not Detected (Not Detect); mecA Methicillin-Resist Gene DETECTED (Not Detect); vanA/B Vancomycin-Resist Genes Not Detected (Not Detect)
[2019-05-12 04:26] LABS: BUN/Creatinine Ratio 52 (6-26); Bilirubin,Total 5.1 mg/dL (0.3-1.0); Blood Urea Nitrogen 49 mg/dL (6-20); Calcium 7.1 mg/dL (8.6-10.3); Carbon Dioxide 14 mEq/L (23-29); Chloride 103 mEq/L (98-107); Glucose 72 mg/dL (70-105); Osmolality,Calculated 272 (280-300); Potassium 4.2 mEq/L (3.5-5.1); Sodium 125 mEq/L (136-145); eGFR For African Americans > 60 (> 60); eGFR For Non-African Americans > 60 (> 60)
[2019-05-12 04:27] LABS: Alanine Aminotransferase 24 Units/L (7-52); Albumin 1.6 g/dL (3.5-5.7); Albumin/Globulin Ratio 0.4 (1.1-2.2); Alkaline Phosphatase 194 Units/L (34-104); Aspartate Amino Transferase 51 Units/L (13-39); Globulin 4.5 g/dL (2.4-3.5); Total Protein 6.1 g/dL (6.4-8.9)
[2019-05-12] MEDS: *HR* Enoxaparin 40 MG/0.4 ML SYRINGE SQ SCH (06:06)
[2019-05-12 06:53] LABS: BUN/Creatinine Ratio 46 (6-26); Blood Urea Nitrogen 51 mg/dL (6-20); Calcium 6.9 mg/dL (8.6-10.3); Carbon Dioxide 13 mEq/L (23-29); Chloride 103 mEq/L (98-107); Glucose 73 mg/dL (70-105); Osmolality,Calculated 272 (280-300); Potassium 4.1 mEq/L (3.5-5.1); Sodium 125 mEq/L (136-145); eGFR For African Americans > 60 (> 60); eGFR For Non-African Americans > 60 (> 60)
[2019-05-12] MEDS: Aspirin 81 MG TAB.CHEW PO SCH (08:59)
[2019-05-12] MEDS: Nicotine 21 MG PATCH.TD24 TD SCH (08:59)
[2019-05-12] MEDS: Lactulose Oral Soln 20 GM/30 ML UDC PO SCH (08:59)
[2019-05-12] MEDS: Folic Acid 1 MG TABLET PO SCH (09:00)
[2019-05-12] MEDS: Lactobacillus 1 EACH CAP.SPRINK PO SCH (09:00)
--- NOTE | 2019-05-12 10:08 | Discharge Summary ---
Orders not resulted at time of discharge: Pending orders 05/11/19 04:08 Zinc AM 0400 05/11/19 10:15 Culture,Blood [BC] Stat Date of Encounter: 05/12/19 Time of Encounter: 09:50 - Discharge Diagnosis (1) MRSA bacteremia Priority: Primary Status: Acute (2) EMILY (acute kidney injury) Priority: Secondary Status: Acute (3) Hyponatremia Priority: Secondary Status: Acute (4) Multiple falls Priority: Secondary Status: Acute (5) Cirrhosis Priority: Secondary Status: Acute Qualifiers: Hepatic cirrhosis type: alcoholic cirrhosis Ascites presence: without ascites Qualified Code(s): K70.30 - Alcoholic cirrhosis of liver without ascites (6) Hypokalemia Priority: Secondary Status: Acute (7) Diabetes mellitus Priority: Secondary Status: Chronic Qualifiers: Diabetes mellitus type: type 2 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 (11) Hypophosphatemia Priority: Secondary Status: Acute (12) Low folic acid Priority: Secondary Status: Acute (13) Gout Priority: Secondary Status: Chronic Qualifiers: Gout site: unspecified site Gout etiology: unspecified cause Chronicity: chronic Presence of tophus: without tophus Qualified Code(s): M1A.9XX0 - Chronic gout, unspecified, without tophus (tophi) (14) Hepatitis C Priority: Secondary Status: Acute Qualifiers: Viral hepatitis chronicity: unspecified Hepatic coma status: without hepatic coma Qualified Code(s): B19.20 - Unspecified viral hepatitis C without hepatic coma Hospital course: Mr. Diggs is a 58 year old male who came to emergency room complaining of multiple falls and ongoing pain in his right hip. He had been seen in emergency room 05/04/2019 and found to have AVN on left hip x-ray similar to previous imaging studies. He was recommended to take NSAID and follow up with his PCP. He had additional falls at home and was brought back to emergency room. He was found to have altered mental status with worsening renal function. He was admitted to [facility] for ongoing care needs. Initial orders were written by the emergency room physician. I saw him on May 10 performed a history and physical. Serology PCR showed MRSA. Blood and urine culture in emergency room confirmed MRSA. He was started empirically on IV vancomycin with lactobacillus. Repeat blood cultures May 11 showed gram-positive cocci in 2/2 cultures. Echocardiogram was done which showed LVEF of 55-60%. There was no significant valvular dysfunction and no evidence of gross valvular vegetations. PAUL was recommended if clinically indicated. The etiology of MRSA was not determined. IV normal saline was given and sodium rory to 125 by day of transfer. IV fluids were given and BUN and creatinine improved to 51 and 1.10 respectively with estimated GFR> 60 by day of transfer. Uric acid level returned elevated at 9.5. He was started on allopurinol. Phosphorus level returned low at 2.4. He was started on Neutra-Phos. Anemia testing showed iron 34, transferrin saturation 23, transferrin 106, ferritin 724, B12 1341, and folate 2.8. He was started on supplemental folate. TSH returned normal at 1.947. Vitamin D level returned low at 15. Liver function tests showed AST and ALT decreased to 51 and 24 respectively by day of transfer. Alkaline phosphatase remained elevated at 194. Bilirubin rory to 5.1 on day of transfer. Ammonia level in emergency room was normal at 41. He was started on lactulose empirically and mental status improved slightly during hospital course. Hepatitis screen returned positive for hepatitis C. 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 He was given IV beta henri and his rate returned to normal range. Lactic acid level rory to 4.9. I discussed clinical status with patient the morning of May 12 and he desired transfer to [facility] for further workup and treatment. - Time Spent with Patient Total time spent providing and/or coordinating discharge services: - Discharge Medications Prescriptions: No Action Allopurinol [Zyloprim 100 MG] 100 mg PO DAILY #30 tablet Aspirin 81 mg PO DAILY #30 tab.chew Atorvastatin [Lipitor] 40 mg PO HS #30 tablet Lisinopril [Zestril] 10 mg PO DAILY #30 tablet metFORMIN [Glucophage] 500 mg PO BIDWM #60 tablet Metoprolol XL (24 HR) Succ [Toprol Xl] 25 mg PO DAILY #30 tab.er.24h Ketorolac [Toradol] 10 mg PO Q6HR #14 tablet Home Medications: Allopurinol [Zyloprim 100 MG] 100 mg PO DAILY #30 tablet 01/04/17 [Rx] Aspirin 81 mg PO DAILY #30 tab.chew 01/04/17 [Rx] Atorvastatin [Lipitor] 40 mg PO HS #30 tablet 01/04/17 [Rx] Lisinopril [Zestril] 10 mg PO DAILY #30 tablet 01/04/17 [Rx] Metoprolol XL (24 HR) Succ [Toprol Xl] 25 mg PO DAILY #30 tab.er.24h 01/04/17 [Rx] metFORMIN [Glucophage] 500 mg PO BIDWM #60 tablet 01/04/17 [Rx] Ketorolac [Toradol] 10 mg PO Q6HR #14 tablet 05/04/19 [Rx] Allergies/Adverse Reactions: Allergy/AdvReac Type Severity Reaction Status Date / Time fluoxetine [From Prozac] AdvReac Nausea Verified 05/09/19 18:20 hydrocodone [From Vicodin] AdvReac Nausea Verified 05/09/19 18:20 Date of admission: 05/10/19 10:11 Primary care physician: PCP NONE Consults: 05/10/19 04:28 Consult to Nutrition [CONS] Routine Comment: Consulting Provider: NUTRITION Reason for Dietary Consult: MST Score Consult to Oil Separator [CONS] Routine Reason for SW Consult: Patient is not being taken care of at home and is uma ble to care for himself. 05/10/19 10:09 Consult to Occupational Therapy [CONS] Routine Comment: Evaluate, develop and implement POC Reason for Consult: Multiple falls Does patient have active BEDREST order?: No Is patient medically & hemodynamically stable?: Yes Patient assessed for mobility or mobilized this visit?: Yes Consult to Physical Therapy [CONS] Routine Comment: Evaluate, develop and implement POC Reason for Consult: Multiple falls Does patient have active BEDREST order?: No Is patient medically & hemodynamically stable?: Yes Patient assessed for mobility or mobilized this visit?: Yes - Constitutional Vitals: Temp Pulse Resp BP Pulse Ox 97.7 F 97 28 100/65 97 05/12/19 06:30 05/12/19 06:30 05/12/19 06:30 05/12/19 06:30 05/12/19 09:00 - Patient Status Disposition: Transfer Other Condition: Good - Discharge Instructions Follow Up With: NONE,PCP [Primary Care Provider] - 1 week
[2019-05-12 11:26] VITALS: BP 158/75
[2019-05-12] MEDS ORDERED: Aminoglycoside Consult 1 EACH MC ONE (12:59)
--- NOTE | 2019-05-15 09:31 | Electrocardiograph Report ---
[address] [address] Test Date: 2019-05-12 Pat Name: Jere Diggs Department: [id number] Room: [facility] Gender: M [employer]: RADAMES : 1960 Requested By: Linda Rosales Order Number: [id number] Reading MD: Landen Markham Measurements Intervals [place] Rate: 101 P: 31 MN: 177 QRS: 46 QRSD: 116 T: 42 QT: 320 QTc: 378 Interpretive Statements SINUS TACHYCARDIA MODERATE INTRAVENTRICULAR CONDUCTION DELAY Electronically Signed On 05-15-2019 9:29:39 EDT by Landen Markham
== END 2019-05-12 13:00 | disposition other institution (70) | DRG 872 ==
LOC: EMEROOPIK 18:10 → INPPIK 18:10
PROVIDERS: ADMIT Internal Medicine; ATTEND Internal Medicine

== ENCOUNTER 2019-11-22 21:43 | Observation (INO) ==
[2019-11-22] MEDS ORDERED: 0.9 % Sodium Chloride 1,000 ML IVC ONE (22:07)
[2019-11-22 22:26] LABS: Bilirubin,Urine Negative (Negative); Blood,Urine Large (Negative); Clarity,Urine Clear (Clear); Color,Urine Yellow (Yellow); Glucose,Urine (UA) Normal (Normal); Ketones,Urine Negative (Negative); Leukocyte Esterase,Urine Negative (Negative); Nitrite,Urine Negative (Negative); PH,Urine 5.5 pH Units (5.0-8.0); Protein,Urine 100 mg/dL (Neg-Trace); Urobilinogen,Urine Normal (Normal)
[2019-11-22 22:33] LABS: Amorphous Sediment,Urine Few per hpf (Few); Bacteria,Urine Few per hpf (None-Few); Granular Casts,Urine Few per lpf (None Seen); RBC,Urine 50-100 per hpf (0-3)
[2019-11-22 22:34] LABS: Yeast,Urine Few per hpf (None Seen)
[2019-11-22 22:57] LABS: Basophils % 0.3 %; Eosinophils # 0.6 K/mcL (0.0-0.6); Eosinophils % 7.3 %; Hematocrit 28.6 % (37.5-50.1); Hemoglobin 9.2 g/dL (12.9-16.9); Immature Granulocytes % 0.3 % (0-4); Lymphocytes % 26.6 %; Mean Corpuscular HGB Conc 32.2 g/dL (31.6-35.5); Mean Corpuscular Hemoglobin 29.5 pg (28.0-33.3); Mean Corpuscular Volume 91.7 fL (83.0-100.0); Mean Platelet Volume 8.9 fL (9.4-12.4); Monocytes # 0.5 K/mcL (0.0-1.3); Monocytes % 6.3 %; Neutrophils # 4.6 K/mcL (1.6-8.9); Platelet Count 253 K/mcL (140-400); Red Blood Count 3.12 M/mcL (4.19-5.50); Red Cell Distribution Width 14.1 % (11.5-14.5); Segmented Neutrophils % 59.2 %; White Blood Count 7.7 K/mcL (4.3-11.1)
[2019-11-22 23:06] LABS: INR 1.2; Prothrombin Time 13.4 Seconds (9.4-12.1)
[2019-11-22 23:08] LABS: Activated Partial Thrombo Time 34.4 Seconds (26.0-36.0)
[2019-11-22 23:18] LABS: Alanine Aminotransferase 17 Units/L (7-52); Albumin 2.9 g/dL (3.5-5.7); Albumin/Globulin Ratio 0.5 (1.1-2.2); Alkaline Phosphatase 195 Units/L (34-104); Aspartate Amino Transferase 18 Units/L (13-39); BUN/Creatinine Ratio 13 (6-26); Bilirubin,Direct 0.1 mg/dL (0.0-0.2); Bilirubin,Indirect 0.2 mg/dL (0.0-1.0); Bilirubin,Total 0.3 mg/dL (0.3-1.0); Blood Urea Nitrogen 40 mg/dL (8-23); Calcium 8.8 mg/dL (8.6-10.3); Carbon Dioxide 16 mEq/L (23-29); Chloride 108 mEq/L (98-107); Ethanol < 10 mg/dL (Less than 10); Globulin 6.2 g/dL (2.4-3.5); Glucose 105 mg/dL (70-105); Osmolality,Calculated 284 (280-300); Potassium 4.1 mEq/L (3.5-5.1); Sodium 132 mEq/L (136-145); Total Protein 9.1 g/dL (6.4-8.9); eGFR For African Americans 25 (> 60); eGFR For Non-African Americans 21 (> 60)
[2019-11-22 23:27] LABS: Troponin I < 0.03 ng/mL (< 0.04)
[2019-11-23] MEDS ORDERED: Naloxone 0.4 MG/ML INJ IVP PRN (02:21)
[2019-11-23] MEDS ORDERED: Lactulose Oral Soln 20 GM/30 ML UDC PO PRN (03:13)
[2019-11-23] MEDS ORDERED: hydrOXYzine pamoate 25 MG CAPSULE PO PRN (03:14)
[2019-11-23] MEDS: 0.9 % Sodium Chloride 1,000 ML IVC SCH ×3 (04:52→18:10)
[2019-11-23] MEDS ORDERED: Levothyroxine 25 MCG TABLET PO SCH (06:00)
[2019-11-23] MEDS: Metoprolol XL (24 HR) Succ 25 MG TAB.ER.24H PO SCH (08:59)
[2019-11-23] MEDS: OLANZapine 5 MG TAB.RAPDIS PO SCH ×2 (08:59→16:42)
[2019-11-23] MEDS: amLODIPine 5 MG TABLET PO SCH (08:59)
[2019-11-23] MEDS: Multivit/Ca/Min/Fe/FA 1 TAB TABLET PO SCH (08:59)
[2019-11-23] MEDS: Chlorhexidine Rinse 15 ML MOUTHWASH MM SCH ×2 (09:00→22:35)
[2019-11-23] MEDS: Insulin LISPRO 300 UNITS/3 ML VIAL SQ SCH ×3 (09:00→16:41)
[2019-11-23] MEDS ORDERED: Cefuroxime PO 500 MG TABLET PO SCH (09:00)
[2019-11-23] MEDS: Doxycycline 100 MG CAPSULE PO SCH ×2 (09:00→22:35)
[2019-11-23 10:43] LABS: Hematocrit 28.6 % (37.5-50.1); Hemoglobin 9.4 g/dL (12.9-16.9); Mean Corpuscular HGB Conc 32.9 g/dL (31.6-35.5); Mean Corpuscular Hemoglobin 29.7 pg (28.0-33.3); Mean Corpuscular Volume 90.5 fL (83.0-100.0); Mean Platelet Volume 8.9 fL (9.4-12.4); Platelet Count 223 K/mcL (140-400); Red Blood Count 3.16 M/mcL (4.19-5.50); Red Cell Distribution Width 14.1 % (11.5-14.5)
[2019-11-23 10:56] LABS: Calcium 8.3 mg/dL (8.6-10.3)
[2019-11-23 19:47] LABS: Adenovirus Not Detected (Not Detect); Bordetella Pertussis Not Detected (Not Detect); Chlamydophila pneumoniae Not Detected (Not Detect); Coronavirus 229E Not Detected (Not Detect); Coronavirus HKU1 Not Detected (Not Detect); Coronavirus NL63 Not Detected (Not Detect); Coronavirus OC43 Not Detected (Not Detect); Human Metapneumovirus Not Detected (Not Detect); Human Rhinovirus/Enterovirus Not Detected (Not Detect); Influenza A Subtype 2009 H1 Not Detected (Not Detect); Influenza B Not Detected (Not Detect); Mycoplasma pneumoniae Not Detected (Not Detect); Parainfluenza Virus 1 Not Detected (Not Detect); Parainfluenza Virus 2 Not Detected (Not Detect); Parainfluenza Virus 3 Not Detected (Not Detect); Parainfluenza Virus 4 Not Detected (Not Detect); Respiratory Syncytial Virus Not Detected (Not Detect)
[2019-11-23] MEDS: Insulin DETEMIR 100 UNIT/ML X5UNITS SQ SCH (22:35)
[2019-11-23] MEDS: Melatonin 3 MG TABLET PO SCH (22:36)
[2019-11-23] MEDS: traZODone 50 MG TABLET PO SCH (22:36)
[2019-11-24] MEDS: 0.9 % Sodium Chloride 1,000 ML IVC SCH ×3 (01:08→17:50)
[2019-11-24] MEDS: Levothyroxine 25 MCG TABLET PO SCH (05:30)
[2019-11-24] MEDS: Multivit/Ca/Min/Fe/FA 1 TAB TABLET PO SCH (09:05)
[2019-11-24] MEDS: Insulin LISPRO 300 UNITS/3 ML VIAL SQ SCH ×3 (09:05→17:25)
[2019-11-24] MEDS: Metoprolol XL (24 HR) Succ 25 MG TAB.ER.24H PO SCH (09:05)
[2019-11-24] MEDS: OLANZapine 5 MG TAB.RAPDIS PO SCH ×2 (09:05→17:27)
[2019-11-24] MEDS: amLODIPine 5 MG TABLET PO SCH (09:05)
[2019-11-24] MEDS: Doxycycline 100 MG CAPSULE PO SCH ×2 (17:26→20:18)
[2019-11-24] MEDS: Cefuroxime PO 250 MG TABLET PO SCH (17:26)
[2019-11-24] MEDS: Chlorhexidine Rinse 15 ML MOUTHWASH MM SCH ×2 (17:26→20:18)
[2019-11-24] MEDS ORDERED: Insulin DETEMIR 100 UNIT/ML per UNIT SQ ONE (20:14)
[2019-11-24] MEDS: Melatonin 3 MG TABLET PO SCH (20:18)
[2019-11-24] MEDS: traZODone 50 MG TABLET PO SCH (20:18)
[2019-11-24] MEDS: Insulin DETEMIR 100 UNIT/ML X5UNITS SQ SCH (21:34)
[2019-11-24] MEDS: *HR* OxyCODONE/APAP 5/325 TABLET PO PRN (23:09)
[2019-11-25] MEDS: 0.9 % Sodium Chloride 1,000 ML IVC SCH ×2 (02:02→08:50)
[2019-11-25] MEDS: *HR* OxyCODONE/APAP 5/325 TABLET PO PRN (06:19)
[2019-11-25] MEDS: Levothyroxine 25 MCG TABLET PO SCH (06:19)
[2019-11-25 06:29] VITALS: BP 153/84
[2019-11-25] MEDS: OLANZapine 5 MG TAB.RAPDIS PO SCH (08:17)
[2019-11-25] MEDS: Metoprolol XL (24 HR) Succ 25 MG TAB.ER.24H PO SCH (08:17)
[2019-11-25] MEDS: amLODIPine 5 MG TABLET PO SCH (08:17)
[2019-11-25] MEDS: Insulin LISPRO 300 UNITS/3 ML VIAL SQ SCH ×2 (08:18→11:51)
[2019-11-25] MEDS: Multivit/Ca/Min/Fe/FA 1 TAB TABLET PO SCH (08:49)
[2019-11-25] MEDS: Doxycycline 100 MG CAPSULE PO SCH (08:49)
[2019-11-25] MEDS: Cefuroxime PO 250 MG TABLET PO SCH (08:49)
[2019-11-25] MEDS: Chlorhexidine Rinse 15 ML MOUTHWASH MM SCH (08:49)
== END 2019-11-25 14:50 | disposition hospice, home (50) ==
LOC: EMEROOPIK 21:43 → INPPIK 21:43
PROVIDERS: ADMIT Internal Medicine; ATTEND Internal Medicine

== ENCOUNTER 2020-01-11 16:15 | Observation (INO) ==
[2020-01-11] MEDS ORDERED: 0.9 % Sodium Chloride 1,000 ML IVC ONE (16:25)
[2020-01-11 16:48] LABS: Hematocrit 27.2 % (37.5-50.1); Hemoglobin 8.4 g/dL (12.9-16.9); Immature Granulocytes % 0.7 % (0-4); Lymphocytes # 1.1 K/mcL (0.6-4.6); Lymphocytes % 13.4 %; Mean Corpuscular HGB Conc 30.9 g/dL (31.6-35.5); Mean Corpuscular Hemoglobin 30.8 pg (28.0-33.3); Mean Corpuscular Volume 99.6 fL (83.0-100.0); Mean Platelet Volume 10.1 fL (9.4-12.4); Monocytes # 0.5 K/mcL (0.0-1.3); Monocytes % 5.6 %; Neutrophils # 6.6 K/mcL (1.6-8.9); Platelet Count 234 K/mcL (140-400); Red Blood Count 2.73 M/mcL (4.19-5.50); Red Cell Distribution Width 16.1 % (11.5-14.5); Segmented Neutrophils % 80.3 %; White Blood Count 8.2 K/mcL (4.3-11.1)
[2020-01-11 16:53] LABS: INR 1.1; Prothrombin Time 12.2 Seconds (9.4-12.1)
[2020-01-11 16:56] LABS: Activated Partial Thrombo Time 24.9 Seconds (26.0-36.0)
[2020-01-11 17:05] LABS: Alanine Aminotransferase 22 Units/L (7-52); Albumin 3.2 g/dL (3.5-5.7); Albumin/Globulin Ratio 0.6 (1.1-2.2); Alkaline Phosphatase 77 Units/L (34-104); Aspartate Amino Transferase 28 Units/L (13-39); BUN/Creatinine Ratio 19 (6-26); Bilirubin,Direct 0.1 mg/dL (0.0-0.2); Bilirubin,Indirect 0.3 mg/dL (0.0-1.0); Bilirubin,Total 0.4 mg/dL (0.3-1.0); Blood Urea Nitrogen 62 mg/dL (8-23); Calcium 7.8 mg/dL (8.6-10.3); Carbon Dioxide 29 mEq/L (23-29); Chloride 95 mEq/L (98-107); Ethanol < 10 mg/dL (Less than 10); Globulin 5.2 g/dL (2.4-3.5); Glucose 143 mg/dL (70-105); Osmolality,Calculated 304 (280-300); Potassium 3.2 mEq/L (3.5-5.1); Sodium 137 mEq/L (136-145); Total Protein 8.4 g/dL (6.4-8.9); Troponin I 0.03 ng/mL (< 0.04); eGFR For African Americans 24 (> 60); eGFR For Non-African Americans 20 (> 60)
[2020-01-11 18:05] LABS: Bilirubin,Urine Negative (Negative); Blood,Urine Moderate (Negative); Clarity,Urine Clear (Clear); Color,Urine Yellow (Yellow); Glucose,Urine (UA) Normal (Normal); Ketones,Urine Negative (Negative); Leukocyte Esterase,Urine Negative (Negative); Nitrite,Urine Negative (Negative); PH,Urine 6.5 pH Units (5.0-8.0); Protein,Urine 100 mg/dL (Neg-Trace); Urobilinogen,Urine Normal (Normal)
[2020-01-11 18:15] LABS: RBC,Urine 15-30 per hpf (0-3); Squamous Epithelial Cell,Urine Few per lpf (None-Few); WBC,Urine 0-3 per hpf (0-3)
[2020-01-11] MEDS ORDERED: Azithromycin 500 MG in 0.9 % Sodium Chloride 250 ML IVPB ONE (18:22)
[2020-01-11] MEDS ORDERED: Ondansetron 4 MG/2 ML VIAL IVP PRN (19:20)
[2020-01-11] MEDS ORDERED: Mag Hydrox/Al Hydrox/Simeth 30 ML UDC PO PRN (19:20)
[2020-01-11] MEDS ORDERED: Naloxone 0.4 MG/ML INJ IVP PRN (19:20)
[2020-01-11] MEDS ORDERED: Furosemide 20 MG/2 ML VIAL IVP ONE (19:27)
[2020-01-11] MEDS ORDERED: Dextrose Gel 15 GM/37.5 ML TUBE PO PRN ×2 (19:34)
[2020-01-11] MEDS ORDERED: D5% in Water 1,000 ML IVC PRN (19:34)
[2020-01-11] MEDS ORDERED: *HR* Dextrose 50 % in Water (Vial) 50 ML VIAL IVP PRN (19:34)
[2020-01-11] MEDS ORDERED: Azithromycin 500 MG in 0.9 % Sodium Chloride 250 ML IVPB SCH (20:00)
[2020-01-11] MEDS ORDERED: Ipratropium/Albuterol Neb 3 ML IH SCH (20:00)
[2020-01-11] MEDS ORDERED: Insulin LISPRO 300 UNITS/3 ML VIAL SQ SCH (21:00)
[2020-01-11] MEDS ORDERED: Furosemide 20 MG/2 ML VIAL IVP SCH (21:00)
[2020-01-11 21:01] VITALS: BP 165/103
[2020-01-12] MEDS ORDERED: Levothyroxine 25 MCG TABLET PO SCH (06:00)
[2020-01-12] MEDS ORDERED: Insulin LISPRO 300 UNITS/3 ML VIAL SQ SCH (07:30)
[2020-01-12] MEDS ORDERED: OLANZAPINE 2.5 MG PO SCH (09:00)
[2020-01-12] MEDS ORDERED: cefTRIAXone 2,000 MG in Water for inj. (sterile) 20 ML IVP SCH (09:00)
[2020-01-12] MEDS ORDERED: cefTRIAXone 2,000 MG in 0.9 % Sodium Chloride Mini Bag 100 ML IVPB SCH (09:00)
[2020-01-12] MEDS ORDERED: Metoprolol XL (24 HR) Succ 25 MG TAB.ER.24H PO SCH (09:00)
[2020-01-12] MEDS ORDERED: LACTULOSE 10 GM PO SCH (09:00)
[2020-01-12] MEDS ORDERED: traZODone 50 MG TABLET PO SCH (21:00)
== END 2020-01-11 21:19 | disposition short-term general hospital (02) ==
LOC: EMEROOPIK 16:15 → INPPIK 16:15
PROVIDERS: ADMIT Family Medicine; ATTEND Family Medicine